=== PATIENT | male | born 1990 | race Caucasian/White ===

== ENCOUNTER 2021-09-11 19:17 | Emergency (ER) | payer OTHER ==
[~2021-09-11] VITALS: Ht 182.8 cm; Wt 99.8 kg
== END 2021-09-11 19:50 | disposition left against medical advice (07) ==
LOC: ED 19:17
DX: T50.7X1A Poisoning by analeptics and opioid receptor antagonists, accidental (unintentional), initial encounter (principal); T40.2X1A Poisoning by other opioids, accidental (unintentional), initial encounter; Y92.89 Other specified places as the place of occurrence of the external cause; Z91.030 Bee allergy status